=== PATIENT | female | born 1955 | race Caucasian/White ===

== ENCOUNTER 2021-01-18 05:04 | Observation (INO) ==
--- NOTE | 2020-12-26 10:40 | PAT Medication Instructions ---
Medication Instructions Date of Service December 26, 2020 Home Medications acetaminophen [Tylenol Extra Strength] 500 mg PO Q6H PRN calcium carbonate-vitamin D3 [Calcium 600 + D(3)] 1 cap PO QAM ibuprofen 200 mg PO Q6H PRN ASK your surgeon for instructions ibuprofen 200 mg PO Q6H PRN DO NOT take the morning of surgery calcium carbonate-vitamin D3 [Calcium 600 + D(3)] 1 cap PO QAM Take morning of surgery With a small sip of water, OTHERWISE NOTHING TO EAT OR DRINK AFTER MIDNIGHT: acetaminophen [Tylenol Extra Strength] 500 mg PO Q6H PRN (okay to take up to 4 hours prior to surgery if needed) Take evening before surgery acetaminophen [Tylenol Extra Strength] 500 mg PO Q6H PRN (if needed) Other Notes If you have any questions please call us at [phone] or [phone] or [phone] or [phone]
--- NOTE | 2020-12-29 10:25 | Anesthesiology Consultation ---
Date of Service December 29, 2020 Assessment & Plan (1) Encounter for pre-operative examination: COVID screening: Per assessment on 12/29: Travel screen negative, no known COVID- 19 positive contacts or current COVID-19 related symptoms. Surgeon arranging preop COVID testing (scheduled 01/13; [facility]). Awaiting results. Chart Review Chart Review: Acceptable Risk for Surgery (pending surgeon-ordered PCP clearance) and Patient seen in Pre Admission Testing Teaching & Discussion Pre-Anesthesia Teaching/Discussion Notes: Instructed NPO after midnight before surgery,except medications with 15 cc of water. Medication instructions provided according to the PAT guidelines. History Surgery Operation Date: 01/18/21 07:15 Proposed Procedures p Right Total Knee Arthroplasty - Harley Horton MD Height/Weight Height: 5 ft 1 in Weight: 72.9 kg Allergies Allergy/AdvReac Type Severity Reaction Status Date / Time cephalexin [From Keflex] Allergy Unknown Rash Verified 12/13/20 10:52 naproxen AdvReac Mild Abdominal Verified 12/29/20 10:22 pain, N/V, diarrhea ciprofloxacin [From Cipro] AdvReac Unknown Unknown Verified 12/13/20 10:52 cortisone AdvReac Unknown Advised Verified 12/29/20 10:22 not to take d/t right eye partial blindness diclofenac [From Cataflam] AdvReac Unknown Unknown Verified 12/29/20 10:22 erythromycin base AdvReac Unknown Hypotension, Verified 12/29/20 10:22 tachycardia nitrofurantoin AdvReac Unknown Jaundice Verified 12/29/20 10:22 [From Macrodantin] triamcinolone [From Nasacort] AdvReac Advised Verified 12/29/20 10:22 not to take d/t right eye partial blindness Medications Home Medications Medication Instructions Recorded Confirmed Last Taken acetaminophen [Tylenol Extra 500 mg PO Q6H PRN 12/13/20 12/13/20 Unknown Strength] calcium carbonate-vitamin D3 1 cap PO QAM 12/13/20 12/13/20 Unknown [Calcium 600 + D(3)] ibuprofen 200 mg PO Q6H PRN 12/13/20 12/13/20 Unknown Past Medical History Medical History GERD (gastroesophageal reflux disease) controlled History of basal cell carcinoma (BCC) s/p excision Osteoporosis Vision abnormalities Right eye partial blindness Exercise / Class Metabolic Activity II 4-5 Yardwork/Stairs/Walk up hill Past Family History Family History Sister Family history of diabetes mellitus Brother Family history of diabetes mellitus Past Surgical History Surgical History Cancer BCC (upper back) Elective surgery Urethral surgery History of colonoscopy x2 History of herniorrhaphy History of hysterectomy + right USO History of ovarian cystectomy x2 Past Anesthesia History No Hx of Anesthesia Complications and No Family Hx of Anesthesia Complications History of PONV No Hx of PONV and No Hx of Motion Sickness Social History Smoking Status: Never smoker Do You Dip or Chew Tobacco: No Hx Alcohol Use: No Hx Substance Use: No Review of Systems No known snoring issues. Patient denies chest pain, shortness of breath, dyspnea on exertion, fever, chills, cough, wheezing, palpitations. Physical Exam Vital Signs VITALS BP 120/75 P 70 TEMP 98.9 SP02 97%RA RESP 18 PHYSICAL Full cervical extension range of motion. Full TMJ range of motion. TMD 3 finger breaths Mallampati Score 2 Dentition: missing lower sides, + crown left lower side/molar Lungs: clear throughout to auscultation Cardiac: regular rate and rhythm, no murmurs noted Spine: normal Carotid arteries: negative bruit Extremities: no edema Testing Laboratory Results 12/29/20 10:52 12/29/20 10:52 PT 10.1 Seconds (9.0-12.0) 12/29/20 10:52 INR 1.0 (0.9-1.1) 12/29/20 10:52 APTT 26.4 Seconds (21.0-31.0) 12/29/20 10:52 Hemoglobin A1c 5.6 % (4.5-5.6) 12/29/20 10:52 Urine Color Yellow 12/29/20 10:52 Urine Appearance Clear (Clear) 12/29/20 10:52 Urine pH 6.5 (4.5-7.5) 12/29/20 10:52 Ur Specific [place] 1.008 (1.000-1.030) 12/29/20 10:52 Urine Protein Negative (Negative) 12/29/20 10:52 Urine Glucose (UA) Negative (Negative) 12/29/20 10:52 Urine Ketones Negative (Negative) 12/29/20 10:52 Urine Nitrite Negative (Negative) 12/29/20 10:52 Ur Leukocyte Esterase Negative (Negative) 12/29/20 10:52 Urine WBC (Auto) 0 /hpf (0-5) 12/29/20 10:52 Urine RBC (Auto) 0-4 /hpf (0-4) 12/29/20 10:52 U Hyaline Cast (Auto) 0 /lpf (0-5) 12/29/20 10:52 U Epithel Cells (Auto) 0-5 /lpf (0-5) 12/29/20 10:52 Urine Bacteria (Auto) Negative (Negative) 12/29/20 10:52 Blood Type O Positive 12/29/20 10:52 Antibody Screen NEGATIVE 12/29/20 10:52 Electrocardiogram Date: 12/29/20 Findings: + NSR @ (67) Chest X-Ray Date: 12/29/20 FINDINGS: Lung volumes are normal. Lungs are clear. There is no pneumothorax or pleural effusion. Cardiac size is normal. Mediastinal contours are normal. There is no evidence for pulmonary edema. IMPRESSION: No acute cardiopulmonary findings.
--- NOTE | 2020-12-29 11:16 | XRay Report ---
XR chest Pre-admission PA/Lat CLINICAL HISTORY: Preoperative evaluation COMPARISON STUDY: No previous studies for comparison. FINDINGS: Lung volumes are normal. Lungs are clear. There is no pneumothorax or pleural effusion. Car diac size is normal. Mediastinal contours are normal. There is no evidence for pulmonary edema. IMPRESSION: No acute cardiopulmonary findings. ACT 112: Negative or not required by law. Electronically signed by: Lance Fung M.D. 12/29/2020 11:14 AM
[2020-12-29 11:21] LABS: Estimated Average Glucose 114 mg/dl; Hemoglobin A1C 5.6 % (4.5-5.6); Partial Thromboplastin Time 26.4 Seconds (21.0-31.0); Prothrombin Time 10.1 Seconds (9.0-12.0)
[2020-12-29 11:26] LABS: Appearance Urine Clear (Clear); Bacteria Urine Automated Negative (Negative); Basophils # (auto) 0.02 K/uL (0-0.2); Basophils % (auto) 0.3 %; Bilirubin Urine Negative (Negative); Blood Urine Trace (Negative); Cast Urine Automated 0 /lpf (0-5); Color Urine Yellow; Eosinophils # (auto) 0.08 K/uL (0-0.5); Eosinophils % (auto) 1.2 %; Epithelial Cell Urine Auto 0-5 /lpf (0-5); Glucose Urine UA Negative (Negative); Hematocrit (blood only) 40.4 % (37-47); Hemoglobin 13.5 g/dL (12.0-16.0); Immature Granulocytes # (auto) 0.01 K/uL (0.00-0.02); Immature Granulocytes % (auto) 0.2 %; Ketones Urine Negative (Negative); Leukocyte Esterase Urine Negative (Negative); Lymphocytes # (auto) 1.29 K/uL (1.2-3.4); Lymphocytes % (auto) 19.4 %; Mean Corpuscular Hemoglobin 28.5 pg (25-34); Mean Corpuscular Hgb Conc 33.4 g/dL (32-36); Mean Corpuscular Volume 85.2 fL (80-100); Mean Platelet Volume 10.8 fL (7.4-10.4); Monocytes # (auto) 0.47 K/uL (0.11-0.59); Monocytes % (auto) 7.1 %; Neutrophils # (auto) 4.78 K/uL (1.4-6.5); Neutrophils % (auto) 71.8 %; Nitrite Urine Negative (Negative); Platelet Count 220 K/uL (130-400); Protein Urine Negative (Negative); RBC Urine Automated 0-4 /hpf (0-4); RDW Coefficient of Variation 12.5 % (11.5-14.5); RDW Standard Deviation 39.1 fL (36.4-46.3); Red Blood Count 4.74 M/uL (4.2-5.4); Specific Gravity Urine 1.008 (1.000-1.030); Urobilinogen Urine Negative (Negative); WBC Urine Automated 0 /hpf (0-5); White Blood Count 6.65 K/uL (4.8-10.8); pH Urine 6.5 (4.5-7.5)
[2020-12-29 13:26] LABS: Albumin Level 3.6 gm/dl (3.4-5.0); BUN Creatinine Ratio 22.3 (10-20); Calcium 9.2 mg/dl (8.5-10.1); Creatinine Clr Calc Pharmacy 83.1 ml/min; Est GFR (African American) 109.3; Est GFR (Non-African American) 94.3; Potassium 3.9 mmol/L (3.5-5.1)
--- NOTE | 2020-12-30 06:32 | Electrocardiogram Report ---
Test Reason : Blood Pressure : / mmHG Vent. Rate : 067 BPM Atrial Rate : 067 BPM P-R Int : 170 ms QRS Dur : 094 ms QT Int : 408 ms P-R-T Axes : 062 065 068 degrees QTc Int : 431 ms Normal sinus rhythm Normal ECG No previous ECGs available Confirmed by Kenton Trotter ([id number]) on 12/30/2020 6:31:40 AM Referred By: Harley Horton Confirmed By:Kenton Trotter
--- NOTE | 2021-01-15 11:40 | History & Physical Report ---
Date of Service January 15, 2021 Assessment & Plan (1) Primary osteoarthritis of right knee: Treatment options discussed with patient. She has failed conservative measures as above and would like to proceed with surgical intervention. Risks, benefits and alternatives to surgery including but not limited to infection, DVT, pain, stiffness, need for revision surgery, damage to blood vessels, damage to nerves, PE, , were discussed with the patient and they wish to proceed. Plan for right total knee arthroplasty at [facility] on 01/18/[address] Horton. Plan on ASA 81mg BID x 1 mo post op for DVT prophylaxis. Will want HHPT post discharge from the hospital. All questions answered. F/u post op. History of Present Illness Chief Complaint: Right knee pain Primary Care Provider: Arnold Summers 65yo female with PMHx significant for osteoporosis, GERD, partial blindness, and hx of BCC presents with longstanding right knee pain. Pain interfering with her daily activities. She has severe arthritis to right knee. She has failed conservative measures including NSAIDs. Cannot have cortisone due to eye condition. She would like to proceed with knee replacement Patient denies headaches, sweats, fevers, chills, double vision, blurred vision, cough, sore throat, dysphagia, chest pain, sob, wheezing, n/v/d/c, numbness, tingling, fatigue, urinary symptoms, mood disorders. ROS positive for right knee pain and stiffness. Allergies Allergy/AdvReac Type Severity Reaction Status Date / Time cephalexin [From Keflex] Allergy Intermediate Rash Verified 01/13/21 08:08 erythromycin base AdvReac Intermediate Hypotension, Verified 01/13/21 08:08 tachycardia nitrofurantoin AdvReac Intermediate Jaundice Verified 01/13/21 08:08 [From Macrodantin] cortisone AdvReac Mild Advised Verified 01/13/21 08:08 not to take d/t right eye partial blindness naproxen AdvReac Mild Abdominal Verified 12/29/20 10:22 pain, N/V, diarrhea triamcinolone [From Nasacort] AdvReac Mild Advised Verified 01/13/21 08:08 not to take d/t right eye partial blindness ciprofloxacin [From Cipro] AdvReac Unknown Unknown Verified 12/13/20 10:52 diclofenac [From Cataflam] AdvReac Unknown Unknown Verified 12/29/20 10:22 Home Medications Medication Instructions Recorded Confirmed Type acetaminophen [Tylenol Extra 500 mg PO Q6H PRN 12/13/20 12/13/20 History Strength] calcium carbonate-vitamin D3 1 cap PO QAM 12/13/20 12/13/20 History [Calcium 600 + D(3)] ibuprofen 200 mg PO Q6H PRN 12/13/20 12/13/20 History Past Med/Surg History Medical History GERD (gastroesophageal reflux disease) controlled History of basal cell carcinoma (BCC) s/p excision Osteoporosis Vision abnormalities Right eye partial blindness Surgical History Cancer BCC (upper back) Elective surgery Urethral surgery History of colonoscopy x2 History of herniorrhaphy History of hysterectomy + right USO History of ovarian cystectomy x2 Family History Sister Family history of diabetes mellitus Brother Family history of diabetes mellitus Social History Smoking Status: Never smoker Second Hand Exposure: Yes (PARENTS SMOKED); Do You Dip or Chew Tobacco: No; Hx Alcohol Use: No Hx Substance Use: No Preferred Language: Persian Communication Ability: Effective Pipe Organ Tuner And Repairer Required: No Beliefs That Will Affect Care: None Current Living Situation: Spouse Other Information That Helps Us Care for You: No Feels Safe at Home: Yes Safety Concerns: Feels Safe At This Time Assistive Devices: Glasses Review of Systems All systems reviewed & are unremarkable except as noted in HPI & below Physical Exam Constitutional: well developed and well nourished; no acute distress Eyes: PERRL, conjunctivae normal, anicteric sclerae ENMT: external ear and nose normal, oropharynx normal Neck: trachea midline, no thyromegaly Respiratory: normal respiratory effort, lungs clear to auscultation Cardiovascular: RRR, no murmur, no edema Musculoskeletal: Right knee: Varus alignment. Tenderness medial joint line, mild effusion. Positive Ky's, stable to valgus and varus stress. Painful ROM actively and passively. ROM 15-110 degrees. Skin: no rashes, warm and dry Neurologic: patellar DTR's 2+ bilat, sensation intact Psychiatric: A+Ox3, euthymic affect Results & Data ([facility]) Laboratory Results Lab Results 12/29/20 12/29/20 12/29/20 Range/Units 10:52 10:52 10:52 WBC 6.65 (4.8-10.8) K/uL RBC 4.74 (4.2-5.4) M/uL Hgb 13.5 (12.0-16.0) g/dL Hct 40.4 (37-47) % MCV 85.2 (80-100) fL MCH 28.5 (25-34) pg MCHC 33.4 (32-36) g/dL RDW Std Deviation 39.1 (36.4-46.3) fL RDW Coeff of Milo 12.5 (11.5-14.5) % Plt Count 220 (130-400) K/uL MPV 10.8 H (7.4-10.4) fL Immature Gran % (Auto) 0.2 % Neut % (Auto) 71.8 % Lymph % (Auto) 19.4 % [place] % (Auto) 7.1 % Eos % (Auto) 1.2 % Baso % (Auto) 0.3 % Neut # (Auto) 4.78 (1.4-6.5) K/uL Lymph # (Auto) 1.29 (1.2-3.4) K/uL [place] # (Auto) 0.47 (0.11-0.59) K/uL Eos # (Auto) 0.08 (0-0.5) K/uL Baso # (Auto) 0.02 (0-0.2) K/uL Immature Gran # (Auto) 0.01 (0.00-0.02) K/uL PT 10.1 (9.0-12.0) Seconds INR 1.0 (0.9-1.1) APTT 26.4 (21.0-31.0) Seconds PTT Ratio 1.0 Sodium (136-145) mmol/L Potassium (3.5-5.1) mmol/L Chloride (98-107) mmol/L Carbon Dioxide (21-32) mmol/L Anion Gap (3-11) BUN (7-18) mg/dl Creatinine (0.6-1.2) mg/dl Est Cr Clr Drug Dosing ml/min Est GFR ( Amer) Est GFR (Non-Af Amer) BUN/Creatinine Ratio (10-20) Glucose (70-99) mg/dl Estimat Average Glucose mg/dl Hemoglobin A1c (4.5-5.6) % Calcium (8.5-10.1) mg/dl Albumin (3.4-5.0) gm/dl Urine Color Urine Appearance (Clear) Urine pH (4.5-7.5) Ur Specific [place] (1.000-1.030) Urine Protein (Negative) Urine Glucose (UA) (Negative) Urine Ketones (Negative) Urine Blood (Negative) Urine Nitrite (Negative) Urine Bilirubin (Negative) Urine Urobilinogen (Negative) Ur Leukocyte Esterase (Negative) Urine WBC (Auto) (0-5) /hpf Urine RBC (Auto) (0-4) /hpf U Hyaline Cast (Auto) (0-5) /lpf U Epithel Cells (Auto) (0-5) /lpf Urine Bacteria (Auto) (Negative) Blood Type O Positive Antibody Screen NEGATIVE 12/29/20 12/29/20 12/29/20 Range/Units 10:52 10:52 10:52 WBC (4.8-10.8) K/uL RBC (4.2-5.4) M/uL Hgb (12.0-16.0) g/dL Hct (37-47) % MCV (80-100) fL MCH (25-34) pg MCHC (32-36) g/dL RDW Std Deviation (36.4-46.3) fL RDW Coeff of Milo (11.5-14.5) % Plt Count (130-400) K/uL MPV (7.4-10.4) fL Immature Gran % (Auto) % Neut % (Auto) % Lymph % (Auto) % [place] % (Auto) % Eos % (Auto) % Baso % (Auto) % Neut # (Auto) (1.4-6.5) K/uL Lymph # (Auto) (1.2-3.4) K/uL [place] # (Auto) (0.11-0.59) K/uL Eos # (Auto) (0-0.5) K/uL Baso # (Auto) (0-0.2) K/uL Immature Gran # (Auto) (0.00-0.02) K/uL PT (9.0-12.0) Seconds INR (0.9-1.1) APTT (21.0-31.0) Seconds PTT Ratio Sodium 141 (136-145) mmol/L Potassium 3.9 (3.5-5.1) mmol/L Chloride 111 H (98-107) mmol/L Carbon Dioxide 26 (21-32) mmol/L Anion Gap 4.0 (3-11) BUN 13 (7-18) mg/dl Creatinine 0.60 (0.6-1.2) mg/dl Est Cr Clr Drug Dosing 83.1 ml/min Est GFR ( Amer) 109.3 Est GFR (Non-Af Amer) 94.3 BUN/Creatinine Ratio 22.3 H (10-20) Glucose 93 (70-99) mg/dl Estimat Average Glucose 114 mg/dl Hemoglobin A1c 5.6 (4.5-5.6) % Calcium 9.2 (8.5-10.1) mg/dl Albumin 3.6 (3.4-5.0) gm/dl Urine Color Yellow Urine Appearance Clear (Clear) Urine pH 6.5 (4.5-7.5) Ur Specific [place] 1.008 (1.000-1.030) Urine Protein Negative (Negative) Urine Glucose (UA) Negative (Negative) Urine Ketones Negative (Negative) Urine Blood Trace H (Negative) Urine Nitrite Negative (Negative) Urine Bilirubin Negative (Negative) Urine Urobilinogen Negative (Negative) Ur Leukocyte Esterase Negative (Negative) Urine WBC (Auto) 0 (0-5) /hpf Urine RBC (Auto) 0-4 (0-4) /hpf U Hyaline Cast (Auto) 0 (0-5) /lpf U Epithel Cells (Auto) 0-5 (0-5) /lpf Urine Bacteria (Auto) Negative (Negative) Blood Type Antibody Screen Diagnostic Findings Right knee: Bone on bone medial compartment with osteophyte formation medial tibial plateau and medial femoral condyle. Lateral compartment joint space maintained with osteophyte formation lateral femoral condyle and lateral tibial plateau. Osteophyte lateral patella
[2021-01-18] MEDS: dexAMETHasone 4 MG TAB PO SCH ×2 (05:55→06:11)
[2021-01-18] MEDS ORDERED: TRANEXAMIC ACID 1,000 MG **IV Pre-op IV SCH (06:00)
[2021-01-18] MEDS ORDERED: CeleBREX 200 MG CAP PO SCH (06:00)
[2021-01-18] MEDS ORDERED: ROPIVACAINE 0.5% HCL/PF 150 MG, BUPIVACAINE 0.75% MPF 20 ML, EPINEPHrine 30MG/30ML (OR ... INFIL SCH ×2 (06:00)
[2021-01-18] MEDS ORDERED: LR 500ML BOLUS, THEN 15ML/HR IV SCH (06:00)
[2021-01-18] MEDS ORDERED: VANCOMYCIN HCL 1,000 MG/270 ML BAG IV SCH (06:00)
[2021-01-18] MEDS ORDERED: GABAPENTIN 300 MG CAP PO SCH (06:00)
[2021-01-18] MEDS ORDERED: METOCLOPRAMIDE HCL 10 MG TABLET PO SCH (06:00)
[2021-01-18] MEDS ORDERED: TRANEXAMIC ACID 1,000 MG **IV Intra-op IV SCH (06:00)
[2021-01-18] MEDS ORDERED: FAMOTIDINE 20 MG TAB PO SCH (06:00)
[2021-01-18] MEDS ORDERED: ACETAMINOPHEN 500 MG TAB PO SCH (06:00)
[2021-01-18] MEDS ORDERED: BUPIVACAINE 0.5 % 5 MG/1 ML PF 10ML VIAL ONE (06:07)
[2021-01-18] MEDS ORDERED: EPINEPHrine INJ 1 MG/ML AMP ONE (06:07)
[2021-01-18] MEDS ORDERED: ROPIVACAINE 0.5% 5 MG/ML 30 ML VIAL ONE (06:07)
[2021-01-18] MEDS ORDERED: fentaNYL citrate 100 MCG/2 ML VIAL ONE (06:25)
[2021-01-18] MEDS ORDERED: PROPOFOL IV EMULSION 10 MG/ML 20 ML VIAL IV ONE ×3 (06:25→08:19)
[2021-01-18] MEDS ORDERED: MIDAZOLAM HCL 1 MG/ML 2ML VIAL ONE (06:25)
[2021-01-18] MEDS ORDERED: ORTHO JOINT ANESTHETIC ONE (06:59)
--- NOTE | 2021-01-18 07:02 | History & Physical Bridge Note ---
Date of Service January 18, 2021 History & Physical Bridge Note I have examined the patient, reviewed the History & Physical and in the interval since the performance of the History & Physical I have noted the following changes of clinical significance: no changes noted
[2021-01-18] MEDS ORDERED: ePHEDrine sulfate 50 MG/ML SYR ONE ×2 (07:46→08:38)
[2021-01-18] MEDS ORDERED: ATROPINE SULFATE 0.1 MG/ML 10ML SYR IV PRN (08:58)
[2021-01-18] MEDS ORDERED: ePHEDrine sulfate 50 MG/ML AMP IV PRN (08:58)
--- NOTE | 2021-01-18 09:28 | Post Operative Brief Note ---
Immediate Post Op Note v1 Date of Surgery January 18, 2021 Pre & Post Diagnosis Operation Date: 01/18/21 07:15 Pre-Op Diagnosis: Unilateral Primary Osteoarthritis, Right Knee Post-Op Diagnosis: Unilateral Primary Osteoarthritis, Right Knee I identified the patient and participated in the time-out.: Yes Procedure Operation Date: 01/18/21 07:15 Actual Procedures p Right Total Knee Arthroplasty(Right), superficial wound VAC- Harley Horton MD Surgeon Harley Horton MD Welding Lead Burner Dangelo FARIA Estimated Blood Loss 5 Findings Consistent with Post-Op Diagnosis Specimens Bone cuts Drains Hemovac Drain Anesthesia Type MAC Spinal Regional Complications none Disposition Accompanied Patient To Recovery: No Disposition: Recovery Room Overlapping Procedure Back up surgeon: was not required during procedure.
--- NOTE | 2021-01-18 09:46 | Operative Report ---
Post Operative Report Pre & Post Diagnosis Operation Date: 01/18/21 07:15 Pre-Op Diagnosis: Unilateral Primary Osteoarthritis, Right Knee Post-Op Diagnosis: Unilateral Primary Osteoarthritis, Right Knee I identified the patient and participated in the time-out.: Yes Procedure Operation Date: 01/18/21 07:15 Actual Procedures p Right Total Knee Arthroplasty(Right), superficial wound VAC- Harley Horton MD Surgeon Harley Horton MD [employer] Director Dangelo FARIA Estimated Blood Loss 5 Findings Consistent with Post-Op Diagnosis Specimens Bone cuts Drains 2 Hemovac Anesthesia Type MAC Spinal Regional Complications none Disposition Accompanied Patient To Recovery: No Disposition: Recovery Room Indications 65-year-old female with chronic progressive osteoarthritis of the right knee. Patient's had extensive conservative management. Radiographs demonstrate that she is [id number] medial compartment and has moderately advanced patellofemoral osteoarthritis with a varus knee. Description of Procedure Patient was taken to the operating room placed supine on the operating table and anesthetized under spinal MAC regional block anesthesia. Exam under anesthesia demonstrated varus knee [id number] crepitation no instability 0 through 130 degrees range of motion. A pneumatic tourniquet was placed about the moderately obese thigh of the right lower extremity. The right lower extremity was prepped and draped in usual fashion. The leg was elevated exsanguinated with an Esmarch bandage and the pneumatic was raised to 325 mm mercury. An anterior incision was made across the right knee. The skin was incised longitudinally subcutaneous flaps were elevated and an incision was made through the medial retinaculum extending up into the mid third of the quadriceps tendon and extended down to the medial tibial tubercle. Intra-articular findings demonstrated medial compartment osteoarthritis [id number] with eburnated bone. Moderate advanced patellofemoral osteoarthritis. The knee was exposed by excising the infrapatellar fat pad, excising the meniscal remnants and anterior cruciate ligament. Any inflamed synovial tissue was resected. The fat pad over the anterior femur was resected for placement of the component in that area. The lateral synovial bands were release. The femur was exposed. The custom femoral cutting block was pinned in position. The distal femoral cutting block was applied. The distal femoral cut was made with the oscillating saw. The size 5, 4-in-1 cutting block was placed. The anterior and posterior chamfer cuts were made. The knee was extended and a subperiosteal peel lateral release was performed around the patella. The patella width was measured and width was reproduced using freehand cut technique. The 32 x 8.5 millimeter symmetrical patella was used. 3 drill holes are made for the pegs. The tibia was exposed. A custom tibial cutting block was positioned and drill holes were made for the cutting guide. Cutting guide was placed and the proximal cut was made with the oscillating saw. All osteophytes were resected. The lamina candy spreader helper was used to assess ligamentous balance and the ligaments were balanced in extension and flexion. The tibia was reexposed and measured for a size C tibial component. This was externally rotated in line with the tibial tubercle and the fixation pins were drilled. The proximal tibia was fashioned with the drill and punch. The size 6 right femoral trial was inserted. The trial MC inserts were used. The 12 mm insert gave balanced ligaments through full range of motion. The patella tracked centrally. the trials were removed. The orthomix anesthetic cocktail was injected per protocol. The knee was then copiously irrigated with pulsatile lavage antibiotic solution with bacitracin. The final components were cemented with Simplex cement. The final components were Marisela Biomet persona right 5 CR standard femoral component, C right tibia, 12 MC polyethylene, 32 x 8.5 symmetrical patella. After the cement cured with the knee in full extension the Betadine soak was used per protocol. The knee joint was copiously irrigated with antibiotic solution with bacitracin. 2 drains were brought out laterally and connected to a Hemovac. The quadriceps tendon and medial retinaculum were closed with interrupted [id number] #1 Vicryl sutures. The knee was taken through a full range of motion and repair was secure. The subcutaneous tissues were closed with 2-0 Vicryl sutures and skin was closed with mary. Mary Beth and Acticoat superficial wound VAC was applied and the patient tolerated the procedure well. Dangelo FARIA my physician grants and contracts assistant, assisted in soft tissue retraction instrument management leg positioning the closure and will participate in the postoperative care of the patient. I attest to the content of the Intraoperative Record and any orders documented therein. Any exceptions are noted below.
--- NOTE | 2021-01-18 10:23 | XRay Report ---
XR knee RT 1 or 2V routine CLINICAL HISTORY: Postoperative evaluation. COMPARISON: None FINDINGS: Alignment of the total right knee arthroplasty is anatomic. No periprosthetic fracture or unexpected radiopaque foreign body. There are skin mary and drains. IMPRESSION: Expected findings following total right knee arthroplasty. ACT 112: Negative or not required by law. Electronically signed by: Lance Fung M.D. 01/18/2021 10:22 AM
--- NOTE | 2021-01-18 10:33 | Anesthesiology Progress Note ---
Date of Service January 18, 2021 Anesthesia Post Procedure Vital Signs Vital Signs: Temp Pulse Pulse Resp BP BP Pulse Ox 01/18/21 10:20 73 18 95/59 L 95 01/18/21 10:10 36.5 C 68 18 105/61 99 01/18/21 10:00 69 20 107/62 94 01/18/21 09:50 73 20 103/57 L 100 01/18/21 09:40 72 20 99/51 L 98 01/18/21 09:30 80 17 110/56 L 99 01/18/21 09:27 36.4 C L 78 20 97/50 L 98 01/18/21 05:40 36.8 C 70 20 138/70 97 Transfer of Care Handoff Completed per policy Notes Mental Status: alert / awake / arousable Patient Amnestic to Procedure: Yes Nausea / Vomiting: adequately controlled Pain: adequately controlled Airway Patency, RR, SpO2: stable & adequate BP & HR: stable & adequate Hydration State: stable & adequate Neuraxial Anesthesia: was administered and sensory block is resolving Anesthetic Complications: no major complications apparent
[2021-01-18] MEDS ORDERED: HYDROmorphone INJ 0.5 MG/0.5 ML SYR IV PRN (10:50)
[2021-01-18] MEDS ORDERED: VANCOMYCIN CONSULT ACTIVE PRN (10:50)
[2021-01-18] MEDS ORDERED: ONDANSETRON INJ 2 MG/ML 2 ML VIAL IV PRN (10:50)
[2021-01-18] MEDS ORDERED: METOCLOPRAMIDE HCL INJ 5 MG/ML 2 ML VIAL IV PRN (10:50)
[2021-01-18] MEDS ORDERED: NALOXONE HCL 0.4 MG/1 ML VIAL/CARP IV PRN (10:50)
[2021-01-18] MEDS ORDERED: bisacodyL 10 MG SUPP PR PRN (10:50)
[2021-01-18] MEDS ORDERED: MAGNESIUM HYDROXIDE SUSP 30 ML UDC PO PRN (10:50)
[2021-01-18] MEDS: SODIUM CHLORIDE 0.9% 1000ML 1,000 ML IV SCH ×2 (11:06→21:13)
--- NOTE | 2021-01-18 12:20 | Hospitalist Consultation ---
Date of Consultation January 18, 2021 Assessment & Plan (1) S/P total knee arthroplasty: Status post right TKA on 01/18 Doing very well, vitals are stable and she is recovering -Postoperative pain control bowel regimen as per orthopedic surgery -Check CBC, BMP in the morning -DVT prophylaxis with aspirin 81 mg p.o. twice daily, Tony Gamble -PT/OT evaluations Patient plans for home health on discharge (2) GERD (gastroesophageal reflux disease): No acute issues and does not take anything chronically at home anymore Pepcid was given preoperatively as a one-time dose (3) Osteoporosis: No acute issues -Continue home calcium plus vitamin D on discharge Follow-up with PCP (4) DVT prophylaxis: Aspirin 81 mg p.o. twice daily, SUNDEEP Jimenez Disposition-continued stay, medically stable Hospital service will sign off at this time. Please feel free to contact us if new or acute issues arise. History of Present Illness Reason for Consultation: Postop medical management Requesting Physician: Dr. Horton Attending Physician: Harley Horton MD History of Present Illness This patient is a 65-year-old female with history of osteoarthritis, osteoporosis, GERD, and seasonal allergies, who is admitted to the hospital after undergoing a right TKA today. She is doing very well and is eating her lunch when I see her. She denies any chest pain or shortness of breath, no nausea or vomiting, no abdominal pains. She has no pain in the knee but is now able to move her legs and wiggle her toes after her spinal anesthesia. We reviewed her history in detail. Allergies Allergy/AdvReac Type Severity Reaction Status Date / Time cephalexin [From Keflex] Allergy Intermediate Rash Verified 01/18/21 05:43 erythromycin base AdvReac Intermediate Hypotension, Verified 01/18/21 05:43 tachycardia nitrofurantoin AdvReac Intermediate Jaundice Verified 01/18/21 05:43 [From Macrodantin] cortisone AdvReac Mild Advised Verified 01/18/21 05:43 not to take d/t right eye partial blindness naproxen AdvReac Mild Abdominal Verified 01/18/21 05:43 pain, N/V, diarrhea triamcinolone [From Nasacort] AdvReac Mild Advised Verified 01/18/21 05:43 not to take d/t right eye partial blindness ciprofloxacin [From Cipro] AdvReac Unknown Unknown Verified 01/18/21 05:43 diclofenac [From Cataflam] AdvReac Unknown Unknown Verified 01/18/21 05:43 Home Medications Medication Instructions Recorded Confirmed Type acetaminophen [Tylenol Extra 500 mg PO Q6H PRN 12/13/20 01/18/21 History Strength] calcium carbonate-vitamin D3 1 cap PO QAM 12/13/20 01/18/21 History [Calcium 600 + D(3)] ibuprofen 200 mg PO Q6H PRN 12/13/20 01/18/21 History Patient History Medical History (Updated 01/18/21 @ 12:26 by Jory Hoyos MD) GERD (gastroesophageal reflux disease) controlled History of basal cell carcinoma (BCC) s/p excision Osteoporosis Vision abnormalities Right eye partial blindness Surgical History Cancer BCC (upper back) Elective surgery Urethral surgery History of colonoscopy x2 History of herniorrhaphy History of hysterectomy + right USO History of ovarian cystectomy x2 S/P total knee arthroplasty Family History Sister Family history of diabetes mellitus Brother Family history of diabetes mellitus Social History Smoking Status: Never smoker Second Hand Exposure: Yes (PARENTS SMOKED); Do You Dip or Chew Tobacco: No; Hx Alcohol Use: No Hx Substance Use: No Preferred Language: Albanian Communication Ability: Effective Slat Twister Required: No Beliefs That Will Affect Care: None Current Living Situation: Spouse Other Information That Helps Us Care for You: No Feels Safe at Home: Yes Safety Concerns: Feels Safe At This Time Assistive Devices: Glasses and Walker Review of Systems Review of Systems: All systems reviewed & are unremarkable except as noted in HPI & below Physical Exam Constitutional: WD/WN, vitals as above Eyes: + anicteric sclerae Neck: trachea midline, no thyromegaly Respiratory: normal respiratory effort, lungs clear to auscultation Cardiovascular: RRR, no murmur, no edema Chest (Breasts): Chest: normal inspection of chest Gastrointestinal (Abdomen): normal bowel sounds, soft, nontender, no hepatosplenomegaly Musculoskeletal: Extremities: + extremities abnormal to inspection (RLE with dressing and Abram wrap in place, bloody drainage in drain), no cyanosis and no clubbing Skin: no rashes, warm and dry Neurologic: moves all extremities and awake; no focal motor deficits (Is able to move legs and wiggle toes and dorsiflex ankles) Psychiatric: A+Ox3, euthymic affect Lymphatic: no lymphedema Results & Data Results & Data ([facility]) Vital Signs (Past 12 Hours) Vital Signs Temp Pulse Pulse Resp BP BP Pulse Ox 01/18/21 11:48 67 16 113/66 99 01/18/21 11:20 64 18 128/61 99 01/18/21 10:50 36.5 C 59 L 16 109/69 97 01/18/21 10:30 36.8 C 63 18 114/58 L 98 01/18/21 10:20 73 18 95/59 L 95 01/18/21 10:10 36.5 C 68 18 105/61 99 01/18/21 10:00 69 20 107/62 94 01/18/21 09:50 73 20 103/57 L 100 01/18/21 09:40 72 20 99/51 L 98 01/18/21 09:30 80 17 110/56 L 99 01/18/21 09:27 36.4 C L 78 20 97/50 L 98 01/18/21 05:40 36.8 C 70 20 138/70 97 Laboratory Results Preoperative laboratory values reviewed Only abnormality is trace blood on dipstick on urinalysis, however there were 0 RBCs per high-powered field Diagnostic Findings Preoperative chest x-ray reviewed and is normal ECG Additional Comments: Preoperative ECG is with normal sinus rhythm, no ischemic changes PG Care Time/CCT Total # of Minutes Spent Total Time Spent with Patient: Total time spent is greater than 50% in coordina tion of care (as documented) at patient's floor/unit and/or counseling patient: Coding Level of Care Code 56988 Office/OBS Consult Lvl 3 Diagnoses S/P total knee arthroplasty Z96.659 GERD (gastroesophageal reflux disease) K21.9 Osteoporosis M81.0 DVT prophylaxis Z29.9
[2021-01-18] MEDS: ACETAMINOPHEN 500 MG TAB PO SCH ×2 (13:28→21:17)
[2021-01-18] MEDS ORDERED: VANCOMYCIN HCL 1,000 MG in SODIUM CHLORIDE 0.9% 250 ML IV SCH (18:00)
[2021-01-18] MEDS ORDERED: SENNA 8.6 MG TAB PO SCH (21:00)
[2021-01-18] MEDS: DOCUSATE SODIUM 100 MG CAP PO SCH (21:16)
[2021-01-18] MEDS: ASPIRIN 81 MG ECTAB PO SCH (21:16)
[2021-01-18] MEDS: CeleBREX 200 MG CAP PO SCH (21:17)
[2021-01-19] MEDS: oxyCODONE HCL IR 5 MG TAB (IMMEDIATE RELEASE) PO PRN ×3 (03:47→16:10)
[2021-01-19] MEDS: ACETAMINOPHEN 500 MG TAB PO SCH ×2 (05:32→13:10)
[2021-01-19 05:49] LABS: Hemoglobin 11.3 g/dL (12.0-16.0); Mean Corpuscular Hemoglobin 28.3 pg (25-34); Mean Corpuscular Hgb Conc 33.2 g/dL (32-36); Mean Corpuscular Volume 85.2 fL (80-100); Mean Platelet Volume 10.1 fL (7.4-10.4); Platelet Count 187 K/uL (130-400); RDW Coefficient of Variation 12.5 % (11.5-14.5); RDW Standard Deviation 38.6 fL (36.4-46.3); Red Blood Count 3.99 M/uL (4.2-5.4); White Blood Count 6.01 K/uL (4.8-10.8)
[2021-01-19] MEDS ORDERED: ROPIVACAINE 0.5% HCL/PF 150 MG, BUPIVACAINE 0.75% MPF 20 ML, EPINEPHrine 30MG/30ML (OR ... INFIL SCH (06:00)
[2021-01-19 06:26] LABS: BUN Creatinine Ratio 20.1 (10-20); Calcium 8.1 mg/dl (8.5-10.1); Creatinine Clr Calc Pharmacy 82.6 ml/min; Est GFR (African American) 109.3; Est GFR (Non-African American) 94.3; Potassium 4.1 mmol/L (3.5-5.1)
--- NOTE | 2021-01-19 07:22 | Orthopedic Progress Note ---
Date of Service January 19, 2021 Assessment & Plan (1) S/P total knee arthroplasty: POD#1 right TKA -PT/OT -pain management as written -DVT prophylaxis-SCDs, TEDs, ASA 81mg BID -AM labs-hemoglobin at 11.3 from 13.5 preop -D/C planning-home with home health PT when stable. Will recheck after therapy this morning for possible d/c today. Admission and Anticipated Discharge Date Admission Date: January 18, 2021 Subjective Patient doing okay this morning. Pain controlled with prescribed medication. Had a lot of pain earlier this morning but right now doing okay. Denies chest pain, sob, dizziness, headache, n/v/d. Review of Systems Review of Systems: All systems reviewed & are unremarkable except as noted in HPI & below Physical Exam Constitutional: well developed and well nourished; no acute distress Musculoskeletal: Right knee dressing is c/d/i. Hemovac on suction. Toes mobile with good dorsiflexion. No calf tenderness. Distally n/v status and sensation intact. Results & Data ([facility]) Vital Signs (Past 12 Hours) Vital Signs Temp Pulse Resp BP Pulse Ox 01/19/21 03:33 36.4 C L 67 16 101/65 96 01/18/21 22:35 36.5 C 59 L 15 106/68 94 01/18/21 19:43 36.4 C L 62 15 108/67 97 Laboratory Results H & H 12/29/20 01/19/21 Range/Units 10:52 05:34 Hgb 13.5 11.3 L (12.0-16.0) g/dL Hct 40.4 34.0 L (37-47) % Coagulation 12/29/20 Range/Units 10:52 INR 1.0 (0.9-1.1) (1) S/P total knee arthroplasty Laterality: right Qualified Code(s): Z96.651 - Presence of right artificial knee joint
[2021-01-19] MEDS: CeleBREX 200 MG CAP PO SCH (08:13)
[2021-01-19] MEDS: DOCUSATE SODIUM 100 MG CAP PO SCH (08:13)
[2021-01-19] MEDS: ASPIRIN 81 MG ECTAB PO SCH (08:13)
[2021-01-19] MEDS ORDERED: CALCIUM 600MG + VIT D 400 IU TAB PO SCH (09:00)
[2021-01-19] MEDS ORDERED: MULTIVITAMIN TAB PO SCH (09:00)
--- NOTE | 2021-01-21 07:16 | Discharge Summary ---
Date of Service January 21, 2021 Admission HPI Per Admitting Provider 65yo female with PMHx significant for osteoporosis, GERD, partial blindness, and hx of BCC presents with longstanding right knee pain. Pain interfering with her daily activities. She has severe arthritis to right knee. She has failed conservative measures including NSAIDs. Cannot have cortisone due to eye condition. She would like to proceed with knee replacement Patient denies headaches, sweats, fevers, chills, double vision, blurred vision, cough, sore throat, dysphagia, chest pain, sob, wheezing, n/v/d/c, numbness, tingling, fatigue, urinary symptoms, mood disorders. ROS positive for right knee pain and stiffness. Admission Exam Per Admitting Provider Constitutional: well developed and well nourished; no acute distress Eyes: PERRL, conjunctivae normal, anicteric sclerae ENMT: external ear and nose normal, oropharynx normal Neck: trachea midline, no thyromegaly Respiratory: normal respiratory effort, lungs clear to auscultation Cardiovascular: RRR, no murmur, no edema Musculoskeletal: Right knee: Varus alignment. Tenderness medial joint line, mild effusion. Positive Ky's, stable to valgus and varus stress. Painful ROM actively and passively. ROM 15-110 degrees. Skin: no rashes, warm and dry Neurologic: patellar DTR's 2+ bilat, sensation intact Psychiatric: A+Ox3, euthymic affect Principal Diagnosis Right knee osteoarthritis Discharge Exam Right knee dressing is c/d/i. Hemovac on suction. Toes mobile with good dorsiflexion. No calf tenderness. Distally n/v status and sensation intact. Constitutional well developed and well nourished; no acute distress Discharge Data Allergies Allergy/AdvReac Type Severity Reaction Status Date / Time cephalexin [From Keflex] Allergy Intermediate Rash Verified 01/18/21 05:43 erythromycin base AdvReac Intermediate Hypotension, Verified 01/18/21 05:43 tachycardia nitrofurantoin AdvReac Intermediate Jaundice Verified 01/18/21 05:43 [From Macrodantin] cortisone AdvReac Mild Advised Verified 01/18/21 05:43 not to take d/t right eye partial blindness naproxen AdvReac Mild Abdominal Verified 01/18/21 05:43 pain, N/V, diarrhea triamcinolone [From Nasacort] AdvReac Mild Advised Verified 01/18/21 05:43 not to take d/t right eye partial blindness ciprofloxacin [From Cipro] AdvReac Unknown Unknown Verified 01/18/21 05:43 diclofenac [From Cataflam] AdvReac Unknown Unknown Verified 01/18/21 05:43 Consultations 01/13/21 14:57 Consult Hospitalist Routine Procedures Performed Operation Date: 01/18/21 07:15 Actual Procedures p Right Total Knee Arthroplasty(Right) - Harley Horton MD Ordered Studies 01/18/21 05:00 US - OR guided needle placemen Routine Hospital Course (1) S/P total knee arthroplasty: Patient presented for same day admission following right total knee arthroplasty on 01/18/21. She tolerated procedure well. The Patient had an uneventful hospital course. Post-operatively, her activity was progressed and well tolerated. They participated in PT with ambulation distance of 120 feet. ROM of operative knee reached 78 degrees. Labs remained stable- lowest hemoglobin recorded:11.3. Dr. Jory Hoyos of medical service was consulted for medical management during admission. Pain controlled on oral medications. Please refer to daily progress notes and PT notes for complete details. After exam on 01/19/21, patient was felt to be stable for discharge home with home health PT. Patient will f/u in the office in about 2 weeks for further evaluation including x-rays and incision check, sooner if having any issues or concerns. POD#1 right TKA -PT/OT -pain management as written -DVT prophylaxis-SCDs, TEDs, ASA 81mg BID -AM labs-hemoglobin at 11.3 from 13.5 preop -D/C planning-home with home health PT when stable. Will recheck after therapy this morning for possible d/c today. Lab Results 12/29/20 12/29/20 12/29/20 Range/Units 10:52 10:52 10:52 WBC 6.65 (4.8-10.8) K/uL RBC 4.74 (4.2-5.4) M/uL Hgb 13.5 (12.0-16.0) g/dL Hct 40.4 (37-47) % MCV 85.2 (80-100) fL MCH 28.5 (25-34) pg MCHC 33.4 (32-36) g/dL RDW Std Deviation 39.1 (36.4-46.3) fL RDW Coeff of Milo 12.5 (11.5-14.5) % Plt Count 220 (130-400) K/uL MPV 10.8 H (7.4-10.4) fL Immature Gran % (Auto) 0.2 % Neut % (Auto) 71.8 % Lymph % (Auto) 19.4 % [place] % (Auto) 7.1 % Eos % (Auto) 1.2 % Baso % (Auto) 0.3 % Neut # (Auto) 4.78 (1.4-6.5) K/uL Lymph # (Auto) 1.29 (1.2-3.4) K/uL [place] # (Auto) 0.47 (0.11-0.59) K/uL Eos # (Auto) 0.08 (0-0.5) K/uL Baso # (Auto) 0.02 (0-0.2) K/uL Immature Gran # (Auto) 0.01 (0.00-0.02) K/uL PT 10.1 (9.0-12.0) Seconds INR 1.0 (0.9-1.1) APTT 26.4 (21.0-31.0) Seconds PTT Ratio 1.0 Sodium (136-145) mmol/L Potassium (3.5-5.1) mmol/L Chloride (98-107) mmol/L Carbon Dioxide (21-32) mmol/L Anion Gap (3-11) BUN (7-18) mg/dl Creatinine (0.6-1.2) mg/dl Est Cr Clr Drug Dosing ml/min Est GFR ( Amer) Est GFR (Non-Af Amer) BUN/Creatinine Ratio (10-20) Glucose (70-99) mg/dl Estimat Average Glucose mg/dl Hemoglobin A1c (4.5-5.6) % Calcium (8.5-10.1) mg/dl Albumin (3.4-5.0) gm/dl Urine Color Urine Appearance (Clear) Urine pH (4.5-7.5) Ur Specific [place] (1.000-1.030) Urine Protein (Negative) Urine Glucose (UA) (Negative) Urine Ketones (Negative) Urine Blood (Negative) Urine Nitrite (Negative) Urine Bilirubin (Negative) Urine Urobilinogen (Negative) Ur Leukocyte Esterase (Negative) Urine WBC (Auto) (0-5) /hpf Urine RBC (Auto) (0-4) /hpf U Hyaline Cast (Auto) (0-5) /lpf U Epithel Cells (Auto) (0-5) /lpf Urine Bacteria (Auto) (Negative) COVID-19 Eval Order Hepatitis C Ab Screen (Neg) SARS-CoV-2, RNA, NAAT (NEGATIVE) Blood Type O Positive Antibody Screen NEGATIVE 12/29/20 12/29/20 12/29/20 Range/Units 10:52 10:52 10:52 WBC (4.8-10.8) K/uL RBC (4.2-5.4) M/uL Hgb (12.0-16.0) g/dL Hct (37-47) % MCV (80-100) fL MCH (25-34) pg MCHC (32-36) g/dL RDW Std Deviation (36.4-46.3) fL RDW Coeff of Milo (11.5-14.5) % Plt Count (130-400) K/uL MPV (7.4-10.4) fL Immature Gran % (Auto) % Neut % (Auto) % Lymph % (Auto) % [place] % (Auto) % Eos % (Auto) % Baso % (Auto) % Neut # (Auto) (1.4-6.5) K/uL Lymph # (Auto) (1.2-3.4) K/uL [place] # (Auto) (0.11-0.59) K/uL Eos # (Auto) (0-0.5) K/uL Baso # (Auto) (0-0.2) K/uL Immature Gran # (Auto) (0.00-0.02) K/uL PT (9.0-12.0) Seconds INR (0.9-1.1) APTT (21.0-31.0) Seconds PTT Ratio Sodium 141 (136-145) mmol/L Potassium 3.9 (3.5-5.1) mmol/L Chloride 111 H (98-107) mmol/L Carbon Dioxide 26 (21-32) mmol/L Anion Gap 4.0 (3-11) BUN 13 (7-18) mg/dl Creatinine 0.60 (0.6-1.2) mg/dl Est Cr Clr Drug Dosing 83.1 ml/min Est GFR ( Amer) 109.3 Est GFR (Non-Af Amer) 94.3 BUN/Creatinine Ratio 22.3 H (10-20) Glucose 93 (70-99) mg/dl Estimat Average Glucose 114 mg/dl Hemoglobin A1c 5.6 (4.5-5.6) % Calcium 9.2 (8.5-10.1) mg/dl Albumin 3.6 (3.4-5.0) gm/dl Urine Color Yellow Urine Appearance Clear (Clear) Urine pH 6.5 (4.5-7.5) Ur Specific [place] 1.008 (1.000-1.030) Urine Protein Negative (Negative) Urine Glucose (UA) Negative (Negative) Urine Ketones Negative (Negative) Urine Blood Trace H (Negative) Urine Nitrite Negative (Negative) Urine Bilirubin Negative (Negative) Urine Urobilinogen Negative (Negative) Ur Leukocyte Esterase Negative (Negative) Urine WBC (Auto) 0 (0-5) /hpf Urine RBC (Auto) 0-4 (0-4) /hpf U Hyaline Cast (Auto) 0 (0-5) /lpf U Epithel Cells (Auto) 0-5 (0-5) /lpf Urine Bacteria (Auto) Negative (Negative) COVID-19 Eval Order Hepatitis C Ab Screen (Neg) SARS-CoV-2, RNA, NAAT (NEGATIVE) Blood Type Antibody Screen 01/18/21 01/18/21 01/19/21 Range/Units Unknown Unknown 05:34 WBC 6.01 (4.8-10.8) K/uL RBC 3.99 L (4.2-5.4) M/uL Hgb 11.3 L (12.0-16.0) g/dL Hct 34.0 L (37-47) % MCV 85.2 (80-100) fL MCH 28.3 (25-34) pg MCHC 33.2 (32-36) g/dL RDW Std Deviation 38.6 (36.4-46.3) fL RDW Coeff of Milo 12.5 (11.5-14.5) % Plt Count 187 (130-400) K/uL MPV 10.1 (7.4-10.4) fL Immature Gran % (Auto) % Neut % (Auto) % Lymph % (Auto) % [place] % (Auto) % Eos % (Auto) % Baso % (Auto) % Neut # (Auto) (1.4-6.5) K/uL Lymph # (Auto) (1.2-3.4) K/uL [place] # (Auto) (0.11-0.59) K/uL Eos # (Auto) (0-0.5) K/uL Baso # (Auto) (0-0.2) K/uL Immature Gran # (Auto) (0.00-0.02) K/uL PT (9.0-12.0) Seconds INR (0.9-1.1) APTT (21.0-31.0) Seconds PTT Ratio Sodium (136-145) mmol/L Potassium (3.5-5.1) mmol/L Chloride (98-107) mmol/L Carbon Dioxide (21-32) mmol/L Anion Gap (3-11) BUN (7-18) mg/dl Creatinine (0.6-1.2) mg/dl Est Cr Clr Drug Dosing ml/min Est GFR ( Amer) Est GFR (Non-Af Amer) BUN/Creatinine Ratio (10-20) Glucose (70-99) mg/dl Estimat Average Glucose mg/dl Hemoglobin A1c (4.5-5.6) % Calcium (8.5-10.1) mg/dl Albumin (3.4-5.0) gm/dl Urine Color Urine Appearance (Clear) Urine pH (4.5-7.5) Ur Specific [place] (1.000-1.030) Urine Protein (Negative) Urine Glucose (UA) (Negative) Urine Ketones (Negative) Urine Blood (Negative) Urine Nitrite (Negative) Urine Bilirubin (Negative) Urine Urobilinogen (Negative) Ur Leukocyte Esterase (Negative) Urine WBC (Auto) (0-5) /hpf Urine RBC (Auto) (0-4) /hpf U Hyaline Cast (Auto) (0-5) /lpf U Epithel Cells (Auto) (0-5) /lpf Urine Bacteria (Auto) (Negative) COVID[facility] Ab Screen (Neg) SARS-CoV-2, RNA, NAAT NEGATIVE (NEGATIVE) Blood Type Antibody Screen 01/19/21 01/19/21 Range/Units 05:34 05:34 WBC (4.8-10.8) K/uL RBC (4.2-5.4) M/uL Hgb (12.0-16.0) g/dL Hct (37-47) % MCV (80-100) fL MCH (25-34) pg MCHC (32-36) g/dL RDW Std Deviation (36.4-46.3) fL RDW Coeff of Milo (11.5-14.5) % Plt Count (130-400) K/uL MPV (7.4-10.4) fL Immature Gran % (Auto) % Neut % (Auto) % Lymph % (Auto) % [place] % (Auto) % Eos % (Auto) % Baso % (Auto) % Neut # (Auto) (1.4-6.5) K/uL Lymph # (Auto) (1.2-3.4) K/uL [place] # (Auto) (0.11-0.59) K/uL Eos # (Auto) (0-0.5) K/uL Baso # (Auto) (0-0.2) K/uL Immature Gran # (Auto) (0.00-0.02) K/uL PT (9.0-12.0) Seconds INR (0.9-1.1) APTT (21.0-31.0) Seconds PTT Ratio Sodium 143 (136-145) mmol/L Potassium 4.1 (3.5-5.1) mmol/L Chloride 113 H (98-107) mmol/L Carbon Dioxide 26 (21-32) mmol/L Anion Gap 4.0 (3-11) BUN 12 (7-18) mg/dl Creatinine 0.60 (0.6-1.2) mg/dl Est Cr Clr Drug Dosing 82.6 ml/min Est GFR ( Amer) 109.3 Est GFR (Non-Af Amer) 94.3 BUN/Creatinine Ratio 20.1 H (10-20) Glucose 103 H (70-99) mg/dl Estimat Average Glucose mg/dl Hemoglobin A1c (4.5-5.6) % Calcium 8.1 L (8.5-10.1) mg/dl Albumin (3.4-5.0) gm/dl Urine Color Urine Appearance (Clear) Urine pH (4.5-7.5) Ur Specific [place] (1.000-1.030) Urine Protein (Negative) Urine Glucose (UA) (Negative) Urine Ketones (Negative) Urine Blood (Negative) Urine Nitrite (Negative) Urine Bilirubin (Negative) Urine Urobilinogen (Negative) Ur Leukocyte Esterase (Negative) Urine WBC (Auto) (0-5) /hpf Urine RBC (Auto) (0-4) /hpf U Hyaline Cast (Auto) (0-5) /lpf U Epithel Cells (Auto) (0-5) /lpf Urine Bacteria (Auto) (Negative) COVID-19 Eval Order Hepatitis C Ab Screen Neg (Neg) SARS-CoV-2, RNA, NAAT (NEGATIVE) Blood Type Antibody Screen Total Time Total Time Spent Total Time Spent (In Minutes): 20 Discharge Plan Discharge Items Patient Disposition: Home - Home Health Services Reason For Visit: Unilateral Primary Osteoarthritis, Right Knee Discharge Diagnosis: Right knee osteoarthritis Activity: Per Instructions section Non-emergency contact: Surgeon Call non-emergency contact if: you have any medication questions, your pain is not controlled, your pain is unusual for you, your pain is concerning for you, you have a fever, your temperature is above 101, your wound has increased redness and your wound has increased drainage Follow-up/Referrals: Arnold Summers [Primary Care Provider] - Diet: Regular Addtl Attending Provider Instructions: ACTIVITY RECOMMENDATIONS: SELF CARE INSTRUCTIONS AFTER TOTAL KNEE REPLACEMENT A. You may need to continue a physical therapy program after discharge from the hospital. There are several options available to you. Your doctor will assist you in selecting the best one for you. 1. An out-patient facility 2 to 3 times a week for therapy or home therapy. 2. Continue working on all exercises taught to you in the hospital. Your goals should be to increase bending of your knee to 90 degrees and beyond and to fully straighten your knee. B. You may progress at your own pace from walking with a walker or crutches to a cane; then to no assistive devices. C. Make walking a part of your daily routine. Be up as much as comfortable with rest periods throughout the day. Rest with leg elevation is very important. Use the ice wrap frequently for the first 3-4 weeks. D. There are no restrictions on activities. You may ride in a car, shop, participate in human resources psychologist and all social activities. E. Wear the long elastic stockings (SUNDEEP hose) 20 hours a day for 2 weeks after surgery. They can be removed several times a day for laundering and for a bath. F. You may shower, no tub baths until cleared by your doctor. SPECIAL CARE INSTRUCTIONS: VERY IMPORTANT TO READ AND REVIEW A. There are a few signs you need to watch for after you are home. Call [facility] if you notice any of the followin. Increased severe knee pain. Some pain is expected especially when you exercise. 2. Increased swelling in your leg or knee; pain or swelling of the calf muscle in either lower leg. 3. Any fluid drainage from the incision. 4. Shortness of breath or chest pain. B. Please call [facility] at if you have any concerns or questions about your operation or recovery. The doctor or his nurse will return your call promptly. C. You must take antibiotics before dental work, bladder, bowel or other surgery. Your doctor will provide you with a permanent care to carry describing this precaution. IMPORTANT: * REMEMBER TO TAKE ASPIRIN, 81 MG, TWICE DAILY FOR 4 WEEKS UNLESS OTHERWISE DIRECTED. THIS IS YOUR BLOOD THINNER. * HIGH RISK PATIENTS MAY BE PRESCRIBED A STRONGER BLOOD THINNER. THIS WILL BE PROVIDED AT DISCHARGE. * CALL IF INCREASED PAIN, REDNESS, DRAINAGE OR FEVER GREATER THAT 101. * WEAR SUNDEEP HOSE 20 HOURS PER DAY FOR 2 WEEKS. This is a large suction dressing covering your incision. This will help pull any excess drainage from the wound and allow your incision to heal properly. You may shower with this if you can keep the unit outside of the shower. If any bleeding or leakage is noted please call your doctor's office. This will remain on your incision for 7 days and then should be removed. This can be done yourself or by the home nursing staff if applicable. The entire unit is disposable once removed. Once removed, keep incision clean and dry. If redness or drainage is noted, please call your surgeon. . IF INCISION IS LEAKING THROUGH DRESSING, CALL THE OFFICE . FOLLOW UP VISIT: If appointment is not already scheduled: Please call [facility] [place] to make a follow-up appointment for 2 weeks after your surgery at . Pending Studies at Discharge: No Stand-Alone Forms: My [facility], Opioid Pain Management, Smoking Cessation Medications and DC Order Prescriptions: New acetaminophen 500 mg Tablet 1,000 mg PO Q8 Qty: 60 RF: 0 aspirin 81 mg Tablet,Delayed Release (Dr/Ec) 81 mg PO BID Qty: 60 RF: 0 celecoxib [Celebrex] 200 mg Capsule 200 mg PO BID Qty: 60 RF: 0 oxycodone 5 mg Tablet 5 - 10 mg PO .Q4h-6h MDD 6 PRN (Reason: pain) Qty: 30 RF: 0 Continued Calcium 600 + D(3) 600 mg calcium- 200 unit Capsule 1 cap PO QAM RF: 0 Discontinued ibuprofen 200 mg Tablet 200 mg PO Q6H PRN (Reason: Pain) RF: 0 acetaminophen [Tylenol Extra Strength] 500 mg Capsule 500 mg PO Q6H PRN (Reason: Pain) RF: 0 Discharge Orders: Discharge Order (Routine); Ordered 01/19/21 Ordered By: Cecil Leyva/Other Patient Handouts: Preventing Deep Vein Thrombosis Admission Data Admit Date/Time: 01/18/21 09:41 Attending Provider: Harley Horton Admit Provider: Harley Horton Primary Care Provider: Arnold Summers Other Providers: Murphy Chaudhary [facility],Home Healthcare Other Interventions: Discharge Summary Assessment (RN) Last Done: 01/19/21 14:16
== END 2021-01-19 16:58 | disposition home health service (06) ==
LOC: ASU 05:04 → 3E 05:04